=== PATIENT | female | born 1985 | race Caucasian/White ===

== ENCOUNTER 2017-09-26 18:54 | Emergency (ER) | payer MEDICAID, OTHER ==
[2017-09-26 19:13] VITALS: BP 127/82
--- NOTE | 2017-09-26 19:49 | ED ---
You Carcamo Sixian, scribed for Jun Bautista on 09/26/17 at 1926 . Abdominal Pain/Female - HPI Summary HPI Summary: This patient is a 32 year old F BIBA to ED with a chief complaint of abdominal pain since 2100 today. The patient is not experiencing any bleeding or contractions. The patient is 35 weeks . The patient rates the pain 9/10 in severity. Symptoms aggravated and alleviated by nothing. Patient denies any bleeding or vaginal discharge. - History of Current Complaint Chief Complaint: EDOBProblems Stated Complaint: 34 WKS PREG/LABOR Hx Obtained From: Patient ?: Yes - 35 weeks Onset/Duration: Lasting Hours, Still Present Timing: Hours Severity Currently: Severe - 9/10 Pain Intensity: 9 Pain Scale Used: 0-10 Numeric Aggravating Factor(s): Nothing Alleviating Factor(s): Nothing Associated Signs and Symptoms: Negative: Vaginal Bleeding, Vaginal Discharge Allergies/Adverse Reactions: Allergies Allergy/AdvReac Type Severity Reaction Status Date / Time No Known Allergies Allergy Verified 09/26/17 19:13 PMH/Surg Hx/FS Hx/Imm Hx Endocrine/Hematology History: Denies: Hx Diabetes Cardiovascular History: Denies: Hx Hypertension - Immunization History Date of Tetanus Vaccine: unk Date of Influenza Vaccine: none Infectious Disease History: No Infectious Disease History: Denies: Traveled Outside the [place] in Last 30 Days - Family History Known Family History: Positive: Hypertension - Social History Alcohol Use: Rare Substance Use Type: Reports: None Smoking Status (MU): Former Smoker Review of Systems Negative: Fever Positive: Abdominal Pain Genitourinary: Negative - vaginal bleeding, discharge All Other Systems Reviewed And Are Negative: Yes Physical Exam - Summary Physical Exam Summary: Appearance: Well appearing Skin: warm, dry, reflects adequate perfusion Head/face: normal Eyes: EOMI, DOMINIK ENT: normal Neck: supple, non-tender Respiratory: CTA, breath sounds present Cardiovascular: RRR, pulses symmetrical Abdomen: distended, tender diffuse Bowel: present Musculoskeletal: normal, strength/ROM intact Neuro: normal, sensory motor intact, A&Ox3 Triage Information Reviewed: Yes Vital Signs On Initial Exam: Initial Vitals Temp Pulse Resp BP Pulse Ox 98.5 F 82 22 127/82 99 09/26/17 19:11 09/26/17 19:11 09/26/17 19:11 09/26/17 19:11 09/26/17 19:11 Vital Signs Reviewed: Yes Diagnostics - Vital Signs Vital Signs Temp Pulse Resp BP Pulse Ox 09/26/17 19:11 98.5 F 82 22 127/82 99 - Laboratory Lab Statement: Any lab studies that have been ordered have been reviewed, and results considered in the medical decision making process. Abdominal Pain Fem Course/Dx - Course Course Of Treatment: This patient is a 32 year old F BIBA to ED with a chief complaint of abdominal pain since 2100 today. The patient is diagnosed with abdominal pain during . The patient is instructed to follow up with labor and delivery at [facility] with Dr. Mccarty. - Diagnoses Differential Diagnosis: Positive: Provider Diagnoses: Abdominal pain in Discharge - Discharge Plan Condition: Stable Disposition: ADMITTED TO [facility] Patient Education Materials: Abdominal Pain in (ED) Referrals: Kashmir Mccarty MD [Medical Doctor] - Additional Instructions: RETURN TO THE EMERGENCY DEPARTMENT FOR CHANGING OR WORSENING SYMPTOMS. The documentation as recorded by the You bosch Sixian accurately reflects the service I personally performed and the decisions made by Michele hamilton Emmanuel.
== END 2017-09-26 19:42 | disposition short-term general hospital (02) ==
LOC: ED 18:54
DX: O26.893 Other specified pregnancy related conditions, third trimester (principal); Z3A.34 34 weeks gestation of pregnancy; R10.9 Unspecified abdominal pain; Z87.891 Personal history of nicotine dependence
CPT/HCPCS: 99282